=== PATIENT | male | born 1945 | race Hispanic/Latino ===

== ENCOUNTER 2016-11-28 12:39 | Outpatient (CLI) | payer MEDICARE ==
--- NOTE | 2016-11-28 13:08 | XRay Report ---
Thoracic spine 2 views: History: Compression fracture. Findings: There is compression fracture noted of order appears to be T10 and T11. There is vertebroplasty noted of T. 12 and L1. The bones are very faintly visualized due to osteopenia. Impression: Findings as detailed above. For optimal evaluation MRI scan may be advised
== END 2016-11-28 12:40 | disposition home or self-care (01) ==
LOC: SPVIMAG 12:39
DX: S22.070A Wedge compression fracture of T9-T10 vertebra, initial encounter for closed fracture (principal); S22.080A Wedge compression fracture of T11-T12 vertebra, initial encounter for closed fracture; M85.88 Other specified disorders of bone density and structure, other site; X58.XXXA Exposure to other specified factors, initial encounter; Y93.89 Activity, other specified; Y92.89 Other specified places as the place of occurrence of the external cause; Y99.8 Other external cause status
CPT/HCPCS: 72070

== ENCOUNTER 2017-02-27 10:54 | Outpatient (CLI) | payer MEDICARE ==
--- NOTE | 2017-02-27 11:52 | XRay Report ---
THORACIC SPINE 2 VIEWS: 02/27/17 10:54:00 CLINICAL: Thoracic spine pain, history of spine fractures and status post kyphoplasty.. COMPARISON: 11/28/16 FINDINGS: Status post kyphoplasty at T12 and L1. Marked midwedge compression fractures are stable at T11, T10, T7, and T6. A moderate T8 midwedge compression fracture with a slight loss in height compared to the last exam. Lower thoracic dextroscoliosis. IMPRESSION: Multiple chronic compression fractures. Loss of height at T8 suggest that this may be an acute or subacute fracture.
== END 2017-02-27 10:55 | disposition home or self-care (01) ==
LOC: SPVIMAG 10:54
DX: M48.54XA Collapsed vertebra, not elsewhere classified, thoracic region, initial encounter for fracture (principal); M41.84 Other forms of scoliosis, thoracic region; Z98.890 Other specified postprocedural states
CPT/HCPCS: 72070